=== PATIENT | male | born 1970 | race Caucasian/White ===

== ENCOUNTER 2017-12-22 18:59 | Emergency (ER) | payer BC ==
[2017-12-22] MEDS ORDERED: Acetaminophen 500 MG TAB ONE (21:09)
[2017-12-22] MEDS ORDERED: Diazepam 5 MG TAB ONE (21:09)
[2017-12-22] MEDS ORDERED: methylPREDNISolone Sod Succ/PF 125 MG/2 ML VIAL ONE (21:09)
--- NOTE | 2017-12-22 22:14 | CT ---
CT LUMBAR SPINE NONCONTRAST: DATE: 12/22/2017 TIME: 9:13 p.m. HISTORY: A 47-year-old male status post acute traumatic injury to the lumbar spine. COMPARISON: None. FINDINGS: There are five lumbar type vertebrae. There are mild anterior wedge compression loss of height defor mities of T11 and T12, without evidence of acute fracture linear lucencies, and no prevertebral soft tissue swelling. These are favored to be old. The L1 through L5 lumbar vertebral body heights are m aintained. There is no spondylolysis or spondylolisthesis. There are mild discogenic degenerative c hanges at T10-T11, T11-T12, and T12-L1. At L5-S1, there is moderate to severe disk space narrowing, with endplate sclerosis and endplate irregularity, and vacuum disk phenomenon, with small marginal os teophytes, plus a diffuse disk bulge. These result in severe bilateral neural foraminal stenosis at that level. The disk bulge indents the ventral aspect of the thecal sac at L5-S1, but does not cause high grade central spinal canal stenosis. There is a soft tissue density extraaxial mass, containin g gas within it, within the right anterolateral epidural space of the spinal canal, at the L5-S1 and the upper S1 level, deforming and displacing the right S1 nerve root. This represents a moderate siz ed disk extrusion. The rest of the levels have preserved disk spaces and no high grade central spinal canal stenosis. At T12-L1, there is a small central and left paracentral focal disk herniation. There is no high gra de neural foraminal stenosis at any level other than L5-S1. IMPRESSION: 1. Moderate degenerative disk disease at L5-S1. 2. Right paracentral, inferiorly migrated, extruded disk herniation at L5-S1, impinging on the right S1 nerve root. 3. Mild to moderate discogenic degenerative changes associated with chronic anterior wedge compressi on deformities in the lower thoracic spine. 4. No acute compression fracture identified. POS: [facility]
[2017-12-22] MEDS ORDERED: Dexamethasone 10 MG/ML VIAL ONE (22:20)
== END 2017-12-22 22:56 | disposition home or self-care (01) ==
LOC: ERS 18:59
DX: M54.42 Lumbago with sciatica, left side (principal); M54.41 Lumbago with sciatica, right side; F17.210 Nicotine dependence, cigarettes, uncomplicated; Z79.899 Other long term (current) drug therapy
CPT/HCPCS: 72131; 96372; J1100; J2930